=== PATIENT | male | born 1965 | race Native Hawaiian/Other Pacific Islander ===

== ENCOUNTER 2018-02-06 16:10 | Outpatient (CLI) | payer OTHER | END 2018-02-06 21:27 | disposition home or self-care (01) | LOC: LABW 16:10 | DX: R10.31 Right lower quadrant pain (principal); R39.12 Poor urinary stream | CPT/HCPCS: 36415; 84154; Q9963 ==

== ENCOUNTER 2018-02-07 13:06 | Outpatient (CLI) | payer OTHER ==
[2018-02-07 13:39] LABS: POTASSIUM 4.4 mmol/L (3.6-5.2)
== END 2018-02-07 19:57 | disposition home or self-care (01) ==
LOC: LAB 13:06
PROVIDERS: Student in an Organized Health Care Education/Training Program
DX: Z00.00 Encounter for general adult medical examination without abnormal findings (principal)
CPT/HCPCS: 80053; 80061; 84439; 84443

== ENCOUNTER 2018-02-13 13:41 | Outpatient (CLI) | payer OTHER ==
[2018-02-13 13:56] LABS: PLATELET COUNT 218 K/uL (142-355)
== END 2018-02-13 22:27 | disposition home or self-care (01) ==
LOC: LABW 13:41
PROVIDERS: Student in an Organized Health Care Education/Training Program
DX: Z00.00 Encounter for general adult medical examination without abnormal findings (principal); N50.9 Disorder of male genital organs, unspecified
CPT/HCPCS: 36415; 85027

== ENCOUNTER 2018-04-03 07:15 | Day surgery (SDC) | payer OTHER ==
[~2018-04-03] VITALS: Ht 30.5 cm; Wt 0.5 kg
[2018-04-03 08:20] LABS: PLATELET COUNT 238 K/uL (142-355); POTASSIUM 3.9 mmol/L (3.6-5.2)
== END 2018-04-03 14:32 | disposition home or self-care (01) ==
LOC: OR 07:15
PROVIDERS: Student in an Organized Health Care Education/Training Program
PROC: 0YU50JZ Supplement Right Inguinal Region with Synthetic Substitute, Open Approach (ICD-10-PCS; principal; 2018-04-03)
PROC: 0VBF0ZZ Excision of Right Spermatic Cord, Open Approach (ICD-10-PCS; 2018-04-03)
DX: K40.90 Unilateral inguinal hernia, without obstruction or gangrene, not specified as recurrent (principal); D17.6 Benign lipomatous neoplasm of spermatic cord
CPT/HCPCS: 80053; 85027; C1729; C1781; J0132; J0330; J0690; J1100; J1170; J1885; J2001; J2250; J2405; J2704; J2710; J2765; J3010; J3490